=== PATIENT | female | born 1960 | race African-American/Black ===

== ENCOUNTER 2016-12-06 07:39 | Day surgery (SDC) | payer BC, OTHER ==
[2016-12-03 10:22] VITALS: BMI 29.9
[~2016-12-06] VITALS: Ht 170.2 cm; Wt 90.4 kg
[2016-12-06] VITALS (13 sets, daily range): BP systolic 112–139; BP diastolic 54–68; PULSE 60–104; RESP 16–29; Ht 170.2 cm; Wt 90.4 kg
[~2016-12-06 07:39] MED LIST: CEFAZOLIN 1 GM INJ ONE
[2016-12-06] MEDS ORDERED: CEFAZOLIN 2 GM/50 ML (PMX) 50 ML IVPB ONE (08:30)
[2016-12-06] MEDS ORDERED: LIDOCAINE 2% (SDV) 5 ML INJ ONE (09:26)
[2016-12-06] MEDS ORDERED: GLYCOPYRROLATE 0.4 MG INJ ONE (09:26)
[2016-12-06] MEDS ORDERED: PROPOFOL 20 ML ONE (09:26)
[2016-12-06] MEDS ORDERED: ROCURONIUM 50 MG INJ ONE (09:26)
[2016-12-06] MEDS ORDERED: FENTAnyl 50 MCG/ML VIAL ONE ×2 (09:26→11:17)
[2016-12-06] MEDS ORDERED: NEOSTIGMINE 3 MG/3 ML SYRINGE ONE (09:26)
[2016-12-06] MEDS ORDERED: MIDAZOLAM 1 MG/ML 2 ML INJ ONE (09:26)
[2016-12-06 09:34] LABS: BASOPHILS % 0.3 % (0.0-2.0); EOSINOPHILS # 0.1 10^3/ul (0.0-0.5); EOSINOPHILS % 3.1 % (0.0-7.0); HEMATOCRIT 35.6 % (37.0-47.0); LYMPHOCYTES # 1.2 10^3/ul (0.8-2.9); MEAN CORPUSCULAR HEMOGLOBIN 30.8 pg (29.0-33.0); MEAN CORPUSCULAR HGB CONC 33.6 g/dl (32.0-37.0); MEAN CORPUSCULAR VOLUME 91.4 fl (82.0-101.0); MEAN PLATELET VOLUME 7.9 fl (7.4-10.4); MONOCYTE # 0.3 10^3/ul (0.3-0.9); MONOCYTES % 6.9 % (0.0-11.0); NEUTROPHIL # 2.9 10^3/ul (1.6-7.5); NEUTROPHILS % 62.7 % (39.0-77.0); PLATELET COUNT 217 10^3/UL (140-440); RED CELL DISTRIBUTION WIDTH 14.9 % (11.5-14.5); UNCORRECTED WBC 4.6 10^3/ul (4.8-10.8); WHITE BLOOD COUNT 4.6 10^3/ul (4.8-10.8)
[2016-12-06 09:36] LABS: CONDITION 1; LH ANALYZER COMMENTS 1
--- NOTE | 2016-12-06 09:37 | RADRPT ---
PROCEDURE: XR Chest. CLINICAL INDICATION: Preop evaluation. TECHNIQUE: AP view of the chest was obtained. COMPARISON: None available FINDINGS: The cardiomediastinal silhouette is within normal limits. There is a left-sided Port-A-Cath in place at the cavoatrial junction. The lungs are clear. No signs of pleural fluid or pneumothorax are see n. The osseous structures and soft tissues are unremarkable. IMPRESSION: 1. No evidence for active cardiopulmonary disease. 2. Left-sided Port-A-Cath in place with tip in the cavoatrial junction. RPTAT: HGAS .Jean Marie Vang MD, MD Date Time Electronically viewed and signed by .Jean Marie Vang MD, MD on 12/06/2016 09:37 .S/
[2016-12-06 09:54] LABS: ALBUMIN 3.6 g/dl (3.3-4.9)
[2016-12-06 09:55] LABS: INR 0.99; PROTIME 13.1 Sec (12.2-14.2)
[2016-12-06 09:57] LABS: BILIRUBIN,INDIRECT 0.3 mg/dl (0-1.1); BILIRUBIN,TOTAL 0.3 mg/dl (0.2-1.3); TOTAL PROTEIN 6.8 g/dl (6.1-8.1)
[2016-12-06 10:00] LABS: CALCIUM 9.4 mg/dl (8.4-10.2); CREATININE 0.86 mg/dl (0.44-1.00); POTASSIUM 4.4 mmol/L (3.5-5.1)
[2016-12-06 10:25] LABS: PARTIAL THROMBOPLASTIN TIME 126.6 Sec (25.0-35.0)
[2016-12-06] MEDS ORDERED: ONDANSETRON 4 MG INJ ONE (11:00)
[2016-12-06] MEDS ORDERED: FENTAnyl 50 MCG/ML VIAL IV PRN ×3 (11:30)
[2016-12-06] MEDS ORDERED: MIDAZOLAM 1 MG/ML 2 ML INJ IV PRN (11:30)
[2016-12-06] MEDS ORDERED: ONDANSETRON 4 MG INJ IV PRN (11:30)
--- NOTE | 2016-12-06 16:24 | OPR ---
DATE OF OPERATION: 12/06/2016 OPERATION PERFORMED: 1. Examination under anesthesia. 2. Uterine hysteroscopy. 3. Dilatation and curettage. PREOPERATIVE DIAGNOSIS: 1. Persistent pelvic pain. Bleeding for the last 2 months. 2. History of breast cancer 10 months ago under treatment in [facility]. POSTOPERATIVE DIAGNOSIS: 1. Atrophic genitalia. 2. Pelvic adhesions, very severe. No descent of the cervix. 3. Fibroid uterus. ANESTHESIA: General. SURGEON: JAVIER OLVERA MD. ESTIMATED BLOOD LOSS: Very minimal. COMPLICATIONS: None. PROCEDURE PERFORMED: After the patient was given general anesthesia by anesthesiologist, she was pl aced in dorsal lithotomy position, prepped and draped in the usual manner for procedure of this kind . Examination under anesthesia revealed uterus was about 2 months' size of with irregular border due to fibroid uterus. There were no adnexal masses. After insertion of a speculum, an att empt was done to grasp the anterior lip of the cervix but the uterus and the cervix was not descende d to the normal position. It was up to the pelvic area. However, after some difficulty exposure wa s done and cervix was grasped and pulled. There was no descent whatsoever. Therefore assumption wa s made that the patient has severe pelvic adhesion and that is why she is complaining of pelvic pain . The uterus was sounded to depth of 9.5 cm. Uterine hysteroscopy was performed after cervix was d ilated by Hegar dilator. Endometrium was very atrophic. There was no projection of tissue and ther e was no sign of projection of the fibroid on this mucosa. After the instrument was removed, endoce rvix was curetted. Very minimal scant tissue was obtained as well as uterus and it was systematical ly curet. Very minimal amount of tissue was obtained. All the instruments were removed. Rectovagi nal exam was done which revealed above findings. The patient tolerated procedure well. She was sakshi vijay in supine position and later on was transferred to recovery room. Final sponge count and instru ment count was correct. Dictated By: JAVIER OLVERA MD PM/NTS Conf#: [id number] DID#: [id number]
--- NOTE | 2016-12-09 11:42 | RADRPT ---
Vent Rate: 59 bpm RR Interval: 0 msec SD Interval: 122 msec QRS Duration: 80 msec QT Interval: 400 msec QTC Interval: 396 msec P-R-T [place]: 44 - 69 - 65 degrees Sinus bradycardia Otherwise normal ECG Electronically Signed By: Kanu Siu [id number]
== END 2016-12-06 13:45 | disposition home or self-care (01) ==
LOC: SDS 07:39
PROVIDERS: ATTEND Obstetrics & Gynecology
DX: D25.9 Leiomyoma of uterus, unspecified (principal); N72 Inflammatory disease of cervix uteri
CPT/HCPCS: 58558; 71010; 80048; 80076; 85025; 85610; 85730; 88305; 93005; J0690; J2250; J2405; J2710; J3010; Z7512; Z7610